=== PATIENT | male | born 1975 | race African-American/Black ===

== ENCOUNTER 2017-01-02 18:12 | Emergency (ER) | payer MEDICAID, OTHER ==
[~2017-01-02] VITALS: Ht 193 cm; Wt 124.7 kg
[~2017-01-02 18:12] MED LIST: CIPROFLOXACIN500 M2 ORAL; NKM
--- NOTE | 2017-01-02 18:44 | Emergency Room Report ---
History of Present Illness General Chief Complaint: Upper Extremity Injury Source: Patient Present Illness HPI 41-year-old male presents to the emergency department complaining of recurrent pain to the dorsum of the left hand for over 10 days. Patient also reports erythema, tenderness and some discharge on occasion. Patient states that over 10 days ago he scraped his left index knuckle and was never evaluated. Patient states that an uncle began to heal a large nodule was performed from the previously avulsed skin that did not take. Patient denies fevers or chills he denies progression of erythema and states that it has been localized the entire time to the knuckle. Patient states he does not currently have a PCP. Patient denies pain to the bones of the affected extremity. he states he is up-to-date with tetanus vaccination. Denies numbness tingling or loss of sensation or gross motor movements of the extremities, incontinence of bowel or bladder. Denies CP, Palpitations, LOC, AMS, dizziness, Changes in Vision, Sensation, paresthesias, or a sudden severe headache. Allergies: Coded Allergies: No Known Allergies (Unverified , 07/14/16) Patient History Past Medical History: see triage record Past Surgical History: none Pertinent Family History: none Immunizations: UTD Reviewed Nursing Documentation: PMH: Agreed, PSxH: Agreed Nursing Documentation-PMH Past Medical History: No Stated History Review of Systems All Other Systems: negative except mentioned in HPI Physical Exam Vital Signs Date Time Temp Pulse Resp B/P Pulse Ox O2 Delivery O2 Flow Rate FiO2 01/02/17 18:24 98.1 82 16 114/72 99 Room Air Sp02 EP Interpretation: reviewed, normal General Appearance: no apparent distress, alert, GCS 15, non-toxic Head: normocephalic, atraumatic Eyes: bilateral eye PERRL, bilateral eye normal inspection ENT: hearing grossly normal, normal pharynx, no angioedema, normal voice Neck: full range of motion, supple/symm/no masses Respiratory: lungs clear, normal breath sounds, speaking full sentences Cardiovascular #1: regular rate, rhythm, no edema, normal capillary refill Musculoskeletal: back normal, gait/station normal, normal range of motion, non- tender Neurologic: alert, oriented x3, responsive, motor strength/tone normal, sensory intact, speech normal Psychiatric: judgement/insight normal, memory normal, mood/affect normal, no suicidal/homicidal ideation Skin: no rash, warm/dry, well hydrated, other - delayed wound approximately 0.8cm in diameter- healing with formation of keloid scar about the flap of skin that did not take, and mild cellulitis, scant amount of purulent d/c noted in the wound. Lymphatic: no adenopathy Medical Decision Making PA Attestation Dr. Zuluaga is my supervising Physician whom patient management has been discussed with. Diagnostic Impression: Primary Impression: Keloid scar of skin Additional Impressions: Cellulitis of finger of left hand Delayed wound healing ER Course 41-year-old male presents to the emergency department complaining of recurrent pain to the dorsum of the left hand for over 10 days. Patient also reports erythema, tenderness and some discharge on occasion. Patient states that over 10 days ago he scraped his left index knuckle and was never evaluated. Patient states that an uncle began to heal a large nodule was performed from the previously avulsed skin that did not take. Patient denies fevers or chills he denies progression of erythema and states that it has been localized the entire time to the knuckle. Patient states he does not currently have a PCP. Patient denies pain to the bones of the affected extremity. he states he is up-to-date with tetanus vaccination. Ddx considered but are not limited to cellulitis, abscess, cystic acne, necrotizing fasciitis, insect bite. Vital signs: are WNL, pt. is afebrile H&PE are most consistent with delayed wound healing with formation of keloid scar, and mild cellulitis. ORDERS: none required at this time, the diagnosis is clinical ED INTERVENTIONS: -wound is cleaned, no obvious fb noted -Bacitracin is applied. -Sterile dressing applied. d/w pt. to begin taking po abx and apply bacitracin regularly. d/w pt. that the flap and keloid would need to be addressed by a hand specialist , and that he will be given a referral as well as a list of low cost health clinics he can follow up with. DISCHARGE: At this time pt. is stable for d/c to home. Will provide printed patient care instructions, and any necessary prescriptions. Care plan and follow up instructions have been discussed with the patient prior to discharge. Last Vital Signs Date Time Temp Pulse Resp B/P Pulse Ox O2 Delivery O2 Flow Rate FiO2 01/02/17 18:24 98.1 82 16 114/72 99 Room Air Disposition: HOME, SELF-CARE Condition: Stable Scripts Bacitracin/Polymyxin B Sulfate (BACITRACIN-POLYMYXIN OINTMENT) 28.35 Gm Oint...g. 1 APPLIC TP BID, #28.3 GM Prov: Hortencia Pandey 01/02/17 Cephalexin* (KEFLEX*) 500 Mg Capsule 500 MG ORAL EVERY 12 HOURS for 7 Days, #14 CAP 0 Refills Prov: Hortencia Pandey 01/02/17 Departure Forms: Return to Work Return to Work Date: Jan 05, 2017 Work Restrictions: No Heavy Lifting Other Restrictions: limited use of left hand x 2 weeks. Return to Full Activity: Jan 19, 2017 Patient Instructions: Delayed Wound Closure Additional Instructions: Take medications as directed. Follow up with PCP in 3-5 days, Recommend Follow Up with HAND SPECIALIST Return sooner to ED if new symptoms occur, or current symptoms become worse. - Please note that this Emergency Department Report was dictated using [employer] manager technology software, occasionally this can lead to erroneous entry secondary to interpretation by the dictation equipment. Hortencia Pandey Jan 02, 2017 18:44
[2017-01-02] MEDS ORDERED: Bacitracin Oint UD TOPIC ONE (18:45)
[2017-01-02] MEDS ORDERED: BACITRACIN-P28.35 GM TP (18:48)
[2017-01-02] MEDS ORDERED: CEPHALEXIN500 MG ORAL (18:48)
[2017-01-02 19:00] VITALS: BP 114/72
== END 2017-01-02 19:03 | disposition home or self-care (01) ==
LOC: EMR 18:40
DX: M79.642 Pain in left hand (principal); L91.0 Hypertrophic scar; L03.012 Cellulitis of left finger; T81.30XA Disruption of wound, unspecified, initial encounter; X58.XXXA Exposure to other specified factors, initial encounter; Y92.9 Unspecified place or not applicable; Y99.8 Other external cause status
CPT/HCPCS: 99284

== ENCOUNTER 2017-06-13 21:58 | Emergency (ER) | payer OTHER ==
[~2017-06-13] VITALS: Ht 193 cm; Wt 124.7 kg
[~2017-06-13 21:58] MED LIST changes: +BACITRACIN-P28.35 GM TP; +CEPHALEXIN500 MG ORAL
[2017-06-13 22:20] VITALS: BP 118/71
[2017-06-13] MEDS ORDERED: Methocarbamol 750mg tab ORAL ONE (22:30)
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
[2017-06-13] MEDS ORDERED: ROBAXIN-750750 MG PO (23:12)
[2017-06-13] MEDS ORDERED: IBUPROFEN600 MG ORAL (23:12)
[2017-06-13 23:25] VITALS: BP 118/71
--- NOTE | 2017-06-14 10:30 | Diagnostic Imaging Report ---
Indication: TRAUMA Technique: 3 views of the lumbar spine Comparison: None Findings:Vertebral body heights are preserved. Disc spaces are preserved. There are small anterior osteophytes at multiple levels. The pedicles are intact. Sacral arches are preserved. Impression:No acute process Minimal degenerative changes as described
== END 2017-06-13 23:25 | disposition home or self-care (01) ==
LOC: EMR 22:15
DX: M54.5 Low back pain (principal); M54.2 Cervicalgia; V43.52XA Car driver injured in collision with other type car in traffic accident, initial encounter
CPT/HCPCS: 72020; 99284

== ENCOUNTER 2020-04-22 05:51 | Emergency (ER) | payer MEDICAID ==
[~2020-04-22] VITALS: Ht 193 cm; Wt 120.2 kg
[~2020-04-22 05:51] MED LIST changes: +DOXYCYCLINE MO100 MG ORAL; +IBUPROFEN600 MG ORAL; +NORCO 5-325 TA1 EACH ORAL; +ROBAXIN-750750 MG PO
[2020-04-22] MEDS ORDERED: Omnipaque-300 100ml vial INJ ONE (06:15)
--- NOTE | 2020-04-22 06:35 | NUR ---
ED Nurse Note: pt ambulated to ED c/o difficulty/pain with swallowing since last night, unable to pin point what the last thing he ate before he felt it, tenderness noted when palpating neck, mouth and tongue appear slightly swollen, pink and moist, denies sob, VSS, spo2 100% on RA. Pt is A&Ox4, falling in and out of sleep. PT on sugar cane planter. ERMD at bedside
[2020-04-22 06:38] VITALS: BP 97/77
--- NOTE | 2020-04-22 07:10 | Emergency Room Report ---
History of Present Illness General Chief Complaint: General Complaint Source: Patient Present Illness HPI This patient states that about a week ago he had a "cold." He states that that resolved. However, he states that yesterday he developed fatigue, body aches, not feeling well and felt swelling in his "neck." He states that it felt difficult to take a deep breath through his throat. He denies shortness of breath. He denies cough. He denies chest pain. He denies weakness. He denies tingling or numbness. He states he did have congestion previously about a week ago but that has resolved. He denies fever or chills. He denies headache or neck stiffness. He denies true throat or neck pain. He states his throat feels "swollen." He does present during the COVID-19 pandemic. Currently in [facility] there is significant and rapid increase in positive COVID-19 cases. Allergies: Coded Allergies: No Known Allergies (Unverified , 10/11/19) COVID-19 Screening Contact w/high risk pt: No Experienced COVID-19 symptoms?: No COVID-19 Testing performed [employer]: Yes - march 22, 2020 COVID-19 Screening: Negative COVID-19 COVID-19 Testing Source: unknown Patient History Past Medical History: none, see triage record Social History: Reports: smoking; Denies: alcohol use, drug use Reviewed Nursing Documentation: PMH: Agreed; PSxH: Agreed Nursing Documentation-PMH Past Medical History: No Stated History Review of Systems All Other Systems: negative except mentioned in HPI Physical Exam Vital Signs Date Time Temp Pulse Resp B/P (MAP) Pulse Ox O2 Delivery O2 Flow Rate FiO2 04/22/20 06:02 99.0 99 23 97/77 (84) 100 Room Air Sp02 EP Interpretation: reviewed, normal General Appearance: no apparent distress, alert, GCS 15, non-toxic Head: normocephalic, atraumatic Eyes: bilateral eye normal inspection, bilateral eye PERRL ENT: hearing grossly normal, no angioedema, normal voice, uvula midline, moist mucus membranes, pharyngeal erythema, other - mild posterior o/p edema, No exudates, No asymmetry, no mass. Neck: normal inspection, full range of motion, supple/symm/no masses, other - Submandibular LISA and anterior cervical LISA. Respiratory: chest non-tender, lungs clear, normal breath sounds, no respiratory distress, no retraction, no accessory muscle use, speaking full sentences Cardiovascular #1: regular rate, rhythm, no edema Gastrointestinal: normal inspection, non tender, soft, non-distended, no guarding, no rebound Rectal: deferred Musculoskeletal: back normal, normal range of motion, gait/station normal, non- tender Neurologic: alert, motor strength/tone normal, oriented x3, sensory intact, responsive, speech normal Psychiatric: judgement/insight normal, memory normal, mood/affect normal, no suicidal/homicidal ideation Skin: no rash, normal color Lymphatic: adenopathy - SUBmandibular and Anterior cervical LISA. Medical Decision Making Diagnostic Impression: Primary Impression: Viral syndrome Additional Impressions: Pharyngitis Suspected COVID-19 virus infection Viral tonsillitis ER Course This patient had presented with a viral syndrome and pharyngitis. Patient does report a viral illness/upper respiratory illness that had occurred prior to the onset of these symptoms. In the setting of the COVID-19 pandemic, there has been shown to be an increased prevalence of thrombotic events in patients who have had COVID-19 and recovered. Given the patient's shortness of breath and elevated d-dimer and history of possible COVID-19 history, I felt that it should obtain a CT PE protocol to rule out a pulmonary embolus. CT was also obtained of the neck given a sensation of swelling. CT neck and CT chest showed no evidence of PE. It did show some prominence of the tonsils and adenoids but no evidence of peritonsillar abscess or other abnormal neck findings. The CT chest did note some groundglass opacities which can be classic for COVID-19. Another consideration is a community-acquired pneumonia. I will give the patient a course of azithromycin. The patient was educated on COVID-19 precautions in quarantine. The patient oxygen saturation is 100% and without respiratory distress. At this time, he does not meet criteria for inpatient admission. He is given very close return precautions and follow-up instructions. This patient was evaluated in the context of the global COVID-19 pandemic, which necessitated consideration that the patient might be at risk for infection with the [id number] virus that causes COVID-19. Institutional protocols and algorithms that pertain to the evaluation of patients at risk for COVID-19 and the state of rapid change based on information released by multiple regulatory bodies including the CDC and federal and state organizations. These policies and algorithms were followed during the patient' s care in the ED. Laboratory Tests Test 04/22/20 06:30 04/22/20 06:40 04/22/20 07:20 White Blood Count 10.8 K/UL (4.8-10.8) Red Blood Count 4.29 M/UL (4.70-6.10) L Hemoglobin 13.5 G/DL (14.2-18.0) L Hematocrit 40.7 % (42.0-52.0) L Mean Corpuscular Volume 95 FL (80-99) Mean Corpuscular Hemoglobin 31.6 PG (27.0-31.0) H Mean Corpuscular Hemoglobin Concent 33.2 G/DL (32.0-36.0) Red Cell Distribution Width 11.8 % (11.6-14.8) Platelet Count 290 K/UL (150-450) Mean Platelet Volume 7.5 FL (6.5-10.1) Neutrophils (%) (Auto) 69.4 % (45.0-75.0) Lymphocytes (%) (Auto) 20.4 % (20.0-45.0) Monocytes (%) (Auto) 7.3 % (1.0-10.0) Eosinophils (%) (Auto) 1.6 % (0.0-3.0) Basophils (%) (Auto) 1.3 % (0.0-2.0) Sodium Level 139 MMOL/L (136-145) Potassium Level 3.4 MMOL/L (3.5-5.1) L Chloride Level 103 MMOL/L (98-107) Carbon Dioxide Level 29 MMOL/L (21-32) Anion Gap 7 mmol/L (5-15) Blood Urea Nitrogen 11 mg/dL (7-18) Creatinine 1.2 MG/DL (0.55-1.30) Estimated Glomerular Filtration Rate > 60 mL/min (>60) Glucose Level 125 MG/DL (74-106) H Calcium Level 8.3 MG/DL (8.5-10.1) L Total Bilirubin < 0.1 MG/DL (0.2-1.0) L Aspartate Amino Transferase (AST) 13 U/L (15-37) L Alanine Aminotransferase (ALT) 24 U/L (12-78) Alkaline Phosphatase 66 U/L (46-116) C-Reactive Protein, Quantitative 4.5 mg/dL (0.00-0.90) H Total Protein 7.4 G/DL (6.4-8.2) Albumin 3.2 G/DL (3.4-5.0) L Globulin 4.2 g/dL Albumin/Globulin Ratio 0.8 (1.0-2.7) L Serum Alcohol < 3 mg/dL D-Dimer 1.06 mg/L FEU (0.00-0.49) H Monoscreen Pending Chest X-Ray Diagnostic Results Chest X-Ray Diagnostic Results : Chest X-Ray Ordered: Yes # of Views/Limited/Complete: 1 View Indication: Shortness of Breath EP Interpretation: Yes Interpretation: no consolidation, no effusion, no pneumothorax, no acute cardiopulmonary disease Impression: No acute disease Electronically Signed by: Heena Brewer DO CT/MRI/US Diagnostic Results CT/MRI/US Diagnostic Results : Imaging Test Ordered: CT neck, CT chest Impression CT neck: Impression: Nonspecific adenoidal and tonsillar prominence. No evidence of abscess or foreign body Dental disease Prominent but not frankly enlarged cervical nodes CT Chest: Impression: Suboptimal pulmonary arterial opacification. No gross large vessel pulmonary emboli a small peripheral emboli cannot be optimally excluded Right upper lobe peripheral groundglass opacities, more subtle peribronchial vascular opacities in the bilateral lower lobes. Appearance nonspecific but raise concern for pneumonia Last Vital Signs Date Time Temp Pulse Resp B/P (MAP) Pulse Ox O2 Delivery O2 Flow Rate FiO2 04/22/20 06:38 99.0 99 23 97/77 100 Room Air Status: improved Disposition: HOME, SELF-CARE Condition: Improved Referrals: [facility],REFERR[facility] (PCP) Heena Brewer DO Apr 22, 2020 07:09
[2020-04-22 07:26] LABS: BASOPHILS % (AUTO) 1.3 % (0.0-2.0); EOSINOPHILS % (AUTO) 1.6 % (0.0-3.0); HEMATOCRIT 40.7 % (42.0-52.0); HEMOGLOBIN 13.5 G/DL (14.2-18.0); LYMPHOCYTES % (AUTO) 20.4 % (20.0-45.0); MEAN CORPUSCULAR VOLUME 95 FL (80-99); MONOCYTES % (AUTO) 7.3 % (1.0-10.0); NEUTROPHILS % (AUTO) 69.4 % (45.0-75.0); PLATELET COUNT 290 K/UL (150-450); RED BLOOD COUNT 4.29 M/UL (4.70-6.10); RED CELL DISTRIBUTION WIDTH 11.8 % (11.6-14.8); WHITE BLOOD COUNT 10.8 K/UL (4.8-10.8)
[2020-04-22 07:33] LABS: ANION GAP 7 mmol/L (5-15); BLOOD UREA NITROGEN 11 mg/dL (7-18); CALCIUM 8.3 MG/DL (8.5-10.1); CARBON DIOXIDE 29 MMOL/L (21-32); CHLORIDE 103 MMOL/L (98-107); CREATININE 1.2 MG/DL (0.55-1.30); POTASSIUM 3.4 MMOL/L (3.5-5.1); SODIUM 139 MMOL/L (136-145)
[2020-04-22 07:39] LABS: ALANINE AMINOTRANSFERASE 24 U/L (12-78); ALBUMIN 3.2 G/DL (3.4-5.0); ALBUMIN/GLOBULIN RATIO 0.8 (1.0-2.7); ALKALINE PHOSPHATASE 66 U/L (46-116); ASPARTATE AMINO TRANSFERASE 13 U/L (15-37); BILIRUBIN,TOTAL < 0.1 MG/DL (0.2-1.0)
--- NOTE | 2020-04-22 08:00 | NUR ---
ED Nurse Note:new IV line was started, blood sent to labs and PO meds given, pt. is asleep condition stable
[2020-04-22] MEDS ORDERED: Omnipaque 350 100ml vial INJ PRN (08:45)
[2020-04-22 09:26] VITALS: BP 127/77
--- NOTE | 2020-04-22 10:02 | NUR ---
ED Nurse Note:pt. went to CT scan
--- NOTE | 2020-04-22 10:28 | NUR ---
ED Nurse Note:pt. is back from CT scan
--- NOTE | 2020-04-22 11:29 | Diagnostic Imaging Report ---
ndication: Shortness of breath, elevated d-dimer Technique: IV administration nonionic contrast. Spiral acquisitions obtained from the lung bases to the lung apices. Multiplanar and 3-D reconstructions were generated. Total dose length product 782 mGycm. CTDIvol(s) one, one, 5, 57, 13 mGy. Dose reduction achieved using automated exposure control Comparison: none Findings: Pulmonary arterial opacification is suboptimal. No large central pulmonary emboli. Smaller distal emboli cannot be confidently excluded, however. No pulmonary arterial dilatation or right ventricular dilatation. The aorta is well-opacified, there is no evidence of thoracic aortic aneurysm or dissection. The proximal abdominal visceral vessels appear unremarkable. Peripheral groundglass opacities are seen in the right upper lobe. There heart very faint peripheral peribronchial vascular opacities in the lower lobes bilaterally. The left upper lobe is clear. The pleural spaces are clear. The heart size is normal. The thyroid is unremarkable. No axillary or chest wall mass or adenopathy. Included upper abdominal viscera are unremarkable. Impression: Suboptimal pulmonary arterial opacification. No gross large vessel pulmonary emboli a small peripheral emboli cannot be optimally excluded Right upper lobe peripheral groundglass opacities, more subtle peribronchial vascular opacities in the bilateral lower lobes. Appearance nonspecific but raise concern for pneumonia The CT scanner at [facility] is accredited by the [employer] and the scans are performed using protocols designed to limit radiation exposure to as low as reasonably achievable to attain images of sufficient resolution adequate for diagnostic evaluation.
--- NOTE | 2020-04-22 11:34 | Diagnostic Imaging Report ---
Indication: Sore throat, history of pharyngitis and viral syndrome, sensation of neck swelling Technique: IV administration nonionic contrast. Spiral acquisitions obtained through the neck. Multiplanar reconstructions were generated. Total dose length product 782 mGycm. CTDIvol(s) one, one, 5, 57, 13 mGy. Dose reduction achieved using automated exposure control Comparison: none Findings: The adenoids are prominent. The bilateral tonsillar pillars are prominent, the right slightly more so than the left. No significant prevertebral soft tissue swelling is evident. The hypopharynx and larynx are unremarkable. No discrete low-attenuation areas to suggest abscess are demonstrated. No cervical mass or adenopathy. Prominent but not frankly enlarged cervical nodes are noted bilaterally. The thyroid is unremarkable. The salivary glands are unremarkable. The bones are unremarkable. The sinuses are clear. There is evidence of multiple prior dental extractions and multiple dental caries. The visualized intracranial structures are unremarkable. No radiopaque foreign bodies demonstrated. Please refer to separate chest CT report for upper thoracic findings Impression: Nonspecific adenoidal and tonsillar prominence. No evidence of abscess or foreign body Dental disease Prominent but not frankly enlarged cervical nodes The CT scanner at [facility] is accredited by the [employer] and the scans are performed using protocols designed to limit radiation exposure to as low as reasonably achievable to attain images of sufficient resolution adequate for diagnostic evaluation.
--- NOTE | 2020-04-22 12:01 | Diagnostic Imaging Report ---
Indication: Shortness of breath Technique: One view of the chest Comparison: Reference made to subsequent chest CT Findings: Infiltrate is seen in the right upper lung, corresponding to right upper lobe infiltrate is demonstrated on separate CT scan. On one of the 2 images, basilar opacities and peribronchial vascular distribution are equivocally evident, less evident on the other images demonstrates better inspiration. The heart size is normal. The pleural spaces are clear Impression: Right upper lobe and possibly basilar infiltrates, suspicious for pneumonia
[2020-04-22] MEDS ORDERED: ZITHROMAX250 MG ORAL (12:18)
[2020-04-22 12:45] VITALS: BP 125/72
[2020-04-22 13:00] VITALS: BP 125/72
--- NOTE | 2020-04-22 13:00 | NUR ---
ER DISCHARGE NOTE: Patient is cleared to be discharged per ERMD, pt is aox4, on room air, with stable vital signs. pt was given dc and prescription instructions, pt was able to verbalize understanding, pt id band and iv site removed without complications. pt is able to ambulate with steady gait. pt took all belongings.
[2020-04-24] MEDS ORDERED: ZITHROMAX250 MG ORAL (14:20)
== END 2020-04-22 13:12 | disposition home or self-care (01) ==
LOC: EMR 06:14
DX: B34.9 Viral infection, unspecified (principal); J03.90 Acute tonsillitis, unspecified; F17.200 Nicotine dependence, unspecified, uncomplicated
CPT/HCPCS: 36415; 70491; 71045; 71275; 80053; 85025; 85379; 86140; 86308; 96360; G0480; J7030; J8540; Q9967; Z7502; 99284